=== PATIENT | male | born 1955 | race Caucasian/White ===

== ENCOUNTER → 2018-11-15 | Outpatient (CLI) | payer BC ==
[~2018-11-15] MED LIST: BARIUM SULFATE 135 ML (E-Z HD) PO ONE; SIMETH/SOD BICARB/CIT AC PKT (E-Z- GAS II) PO ONE
== END | disposition home or self-care (01) ==
LOC: RAD 08:30
PROVIDERS: ATTEND Physician Assistant Medical
DX: K29.70 Gastritis, unspecified, without bleeding (principal)
CPT/HCPCS: 74240; 74250; Z7610

== ENCOUNTER 2019-05-16 10:09 | Day surgery (SDC) | payer BC ==
[~2019-05-16] VITALS: Ht 175.3 cm; Wt 120.1 kg
[~2019-05-16 10:09] MED LIST changes: +AMLODIPINE; +ATOR-2 PO; -BARIUM SULFATE 135 ML (E-Z HD) PO ONE; +LOSARTAN PO; +OMEP20CA17 PO; +PARO-37 PO; -SIMETH/SOD BICARB/CIT AC PKT (E-Z- GAS II) PO ONE
[2019-05-16 11:35] VITALS: BP 123/71; PULSE 85; RESP 18
[2019-05-16 11:36] VITALS: Ht 175.3 cm; Wt 120.1 kg
[2019-05-16] MEDS ORDERED: PROPOFOL 40 ML ONE (11:37)
[2019-05-16 12:29] VITALS: BP 123/76; PULSE 65; RESP 18
== END 2019-05-16 13:09 | disposition home or self-care (01) ==
LOC: GIL 10:09
PROVIDERS: ATTEND Internal Medicine Gastroenterology
DX: Z12.11 Encounter for screening for malignant neoplasm of colon (principal); K64.8 Other hemorrhoids; K57.30 Diverticulosis of large intestine without perforation or abscess without bleeding; K29.60 Other gastritis without bleeding; I10 Essential (primary) hypertension
CPT/HCPCS: 43239; 45378; 88305; 88312; Z7610